=== PATIENT | female | born 1980 | race Caucasian/White ===

== ENCOUNTER → 2018-07-21 20:02 | Outpatient (CLI) | payer BC | END | disposition home or self-care (01) | LOC: D.MAMMO 13:15 | DX: Z12.31 Encounter for screening mammogram for malignant neoplasm of breast (principal) ==

== ENCOUNTER 2021-02-08 07:15 | Day surgery (SDC) | payer BC ==
[2021-02-06 10:58] LABS: EOSINOPHILS 5.3 % (0-7); HEMATOCRIT 37.6 % (36.0-48.0); HEMOGLOBIN 12.6 g/dL (12-16); LYMPHOCYTES 28.3 % (15-50); MCH 29.8 pg (26.0-34.0); MCHC 33.5 g/dL (31.0-37.0); MCV 89.1 fL (80.0-100.0); MEAN PLATELET VOLUME 7.4 fL (7.4-10.4); MONOCYTES 6.9 % (2-11); NEUTROPHILS 58.5 % (40-80); PLATELET COUNT 361 10x3/uL (130-400); RBC 4.21 10x6/uL (4.00-5.40); RDW 12.7 % (11.5-14.5); WBC 6.3 10x3/uL (4.8-10.8)
[~2021-02-08] VITALS: Ht 157.5 cm; Wt 89.4 kg
[2021-02-08 08:51] VITALS: BP 99/61; Ht 157.5 cm; Wt 89.4 kg
[2021-02-08 09:17] LABS: HCG URINE NEGATIVE (NEGATIVE)
--- NOTE | 2021-02-08 13:05 | NUR ---
CO NAUSEA, ZOFRAN GIVEN ORDERED
--- NOTE | 2021-02-08 15:15 | NUR ---
1410 IV REMOVED AND PRESSURE HELD.
--- NOTE | 2021-02-25 15:32 | OP ---
PATIENT NAME: LYNNE BARRIENTOS MEDICAL RECORD: [id number] :76 LOCATION:[facility] ADMISSION DATE: SURGEON: MICK UREÑA MD DATE OF OPERATION: 02/08/2021 PREOPERATIVE DIAGNOSIS: High-grade cervical dysplasia, on Pap smear. POSTOPERATIVE DIAGNOSIS: High-grade cervical dysplasia, on Pap smear. PROCEDURE: Loop electrosurgical excision procedure. SURGEON: Mick Ureña MD ANESTHESIA: General endotracheal. INTRAVENOUS FLUID: Per anesthesia record. FINDINGS: Grossly normal-appearing external genitalia and cervix. COMPLICATIONS: None apparent. SPECIMENS: Cervical cone biopsy. DESCRIPTION OF PROCEDURE: The patient was taken to the operating room where general anesthesia was achieved without difficulty. The patient was then prepped and draped in normal sterile fashion in the dorsal lithotomy position in the [facility]. The patient was then prepped and draped and approximately 50 cc of straw colored urine was straight cathed from the patient's bladder. At this point, an insulated speculum was placed into the vagina and the cervix was identified. A 1 cm x 1 cm LEEP electrode was then used to excise approximately a 0.8 mm depth and 1.5 cm transverse cone biopsy. Small areas of bleeding at the cervical crater site was then cauterized with the Bovie cautery with good hemostasis noted. Ferrous subsulfate solution was then placed on the cervix. The speculum was removed. The patient tolerated the procedure well and was transported to postanesthesia recovery stable without incident. TRANSINT:[id number] Voice Confirmation ID: [id number] DOCUMENT ID: [id number] MICK UREÑA MD at 1532 CC: [id number] DICTATION DATE: 02/25/21 0604 FITTER'S ASSISTANT: 02/25/21 0910 [facility] 02/08/21 [place] [id number] [place] [id number]
== END 2021-02-08 15:00 | disposition home or self-care (01) ==
LOC: D.OPS 07:15
PROVIDERS: ATTEND Obstetrics & Gynecology
DX: R87.613 High grade squamous intraepithelial lesion on cytologic smear of cervix (HGSIL) (principal)